=== PATIENT | female | born 1970 | race Caucasian/White ===

== ENCOUNTER 2017-10-05 09:14 | Observation (INO) | payer OTHER ==
[~2017-10-05] VITALS: Ht 170.2 cm; Wt 82.7 kg
[2017-10-05 08:00] VITALS: BP 116/80
[2017-10-05 09:26] LABS: BASOPHILS # (AUTO) 0.21 x10^3/uL (0-0.1); BASOPHILS % (AUTO) 3 % (0-1); EOSINOPHILS # (AUTO) 0.16 x10^3/uL (0-0.4); EOSINOPHILS % (AUTO) 2 % (1-7); LYMPHOCYTES % (AUTO) 33 % (22-44); MD NO; MEAN CORPUSCULAR HGB CONC 33.3 g/dL (32.4-35.8); MEAN CORPUSCULAR VOLUME 93.1 fL (80-100); MEAN PLATELET VOLUME 7.6 fL (7.4-10.4); MONOCYTES # (AUTO) 0.82 x10^3/uL (0.2-0.8); MONOCYTES % (AUTO) 13 % (2-9); NEUTROPHILS % (AUTO) 49 % (42-75); PLATELET COUNT 340 x10^3/uL (130-400); RED BLOOD COUNT 4.41 x10^6/uL (3.82-5.3); RED CELL DISTRIBUTION WIDTH 13.5 % (9.6-15.2)
[2017-10-05] MEDS ORDERED: SODIUM CHLORIDE FLUSH 10ML SYR IVF ONE (09:30)
[2017-10-05 09:36] LABS: INTERNATIONAL NORMALIZED RATIO 0.96 (0.93-1.1)
[2017-10-05 09:42] LABS: TROPONIN I < 0.015 ng/mL (0.000-0.045)
[2017-10-05] MEDS ORDERED: ALPR0.25 PO (10:25)
[2017-10-05] MEDS ORDERED: FLUO10CA7 PO (10:25)
[2017-10-05] MEDS ORDERED: [UNRECOGNIZED DRUG - OTHER] (10:25)
[2017-10-05] MEDS ORDERED: LOVASTATIN PO (10:27)
[2017-10-05] MEDS ORDERED: SYNTHROID PO (10:27)
[2017-10-05] MEDS ORDERED: SODIUM CHLORIDE FLUSH 10ML SYR IVF PRN (11:30)
[2017-10-05] MEDS ORDERED: NICOTINE 14MG/24 HR PATCH.TD24 TD SCH (12:30)
[2017-10-05] MEDS ORDERED: ONDANSETRON ODT 4 MG PO PRN (12:30)
[2017-10-05] MEDS ORDERED: GADOBUTROL 15 MMOL/15 ML PFS ONE (12:54)
[2017-10-05 13:59] LABS: CHOL/HDL RATIO 2.3; LDL/HDL RATIO 1.2 (0.5-3.0)
[2017-10-05 14:05] VITALS: BP 128/64
[2017-10-05 19:36] LABS: TROPONIN I < 0.015 ng/mL (0.000-0.045)
[2017-10-05 20:01] VITALS: BP 118/75
[2017-10-05 20:22] LABS: MICROSCOPIC NOT IND
[2017-10-05 20:26] LABS: CULTURE INDICATED? NO
[2017-10-05] MEDS: AMOXICILLIN/CLAV 875-125MG TABLET PO SCH (20:55)
[2017-10-06 02:02] VITALS: BP 111/75
[2017-10-06] MEDS ORDERED: LEVOTHYROXINE 50 MCG TABLET PO SCH (06:00)
[2017-10-06] MEDS ORDERED: ASPIRIN 325 MG TABLET PO SCH (06:00)
[2017-10-06 07:15] VITALS: BP 101/56
[2017-10-06] MEDS ORDERED: LOVASTATIN 20 MG TABLET PO SCH (09:00)
[2017-10-06] MEDS ORDERED: FLUOXETINE 10 MG CAP PO SCH (09:00)
[2017-10-06] MEDS: AMOXICILLIN/CLAV 875-125MG TABLET PO SCH (09:00)
[2017-10-06] MEDS ORDERED: ASPI-515 PO (10:00)
[2017-10-06] MEDS ORDERED: AMOX1TAB12 PO (10:04)
== END 2017-10-06 11:44 | disposition home or self-care (01) ==
LOC: ED 10:21 → EDIP 10:22 → INTOOBSV 10:22 → ED 10:36 → 4WST 11:08
PROVIDERS: ADMIT Hospitalist; ATTEND Hospitalist
DX: R53.1 Weakness (principal); G45.9 Transient cerebral ischemic attack, unspecified; J32.0 Chronic maxillary sinusitis; E78.00 Pure hypercholesterolemia, unspecified; E78.5 Hyperlipidemia, unspecified; F10.21 Alcohol dependence, in remission; F17.210 Nicotine dependence, cigarettes, uncomplicated; F41.9 Anxiety disorder, unspecified
CPT/HCPCS: 36415; 70450; 70496; 70498; 70553; 71045; 80061; 81003; 83735; 84100; 84484; 85025; 85610; 85730; 93005; 99285; A9585; G0378

== ENCOUNTER → 2017-12-18 | Outpatient (CLI) | payer OTHER ==
[~2017-12-18] MED LIST: ALPR0.25 PO; AMOX1TAB12 PO; ASPI-515 PO; FLUO10CA7 PO; LIDOCAINE-MPF 2%, 2ML ONE; LOVASTATIN PO; OMNIPAQUE 300 MG/ML, 10ML VIAL ONE; ROPivacaine/PF 0.2%, 10 ML ONE; SYNTHROID PO; TRIAMCINOLONE ACETONIDE 40 MG/ML, 1ML ONE; [UNRECOGNIZED DRUG - OTHER]
== END | disposition home or self-care (01) ==
LOC: RAD 14:44
PROVIDERS: ATTEND Orthopaedic Surgery Foot and Ankle Surgery
DX: M20.41 Other hammer toe(s) (acquired), right foot (principal)
CPT/HCPCS: 20605; 77002; J2795; J3301; J3490; Q9967

== ENCOUNTER → 2018-07-09 | Outpatient (CLI) | payer OTHER ==
[~2018-07-09] MED LIST changes: -LIDOCAINE-MPF 2%, 2ML ONE; -OMNIPAQUE 300 MG/ML, 10ML VIAL ONE; -ROPivacaine/PF 0.2%, 10 ML ONE; -TRIAMCINOLONE ACETONIDE 40 MG/ML, 1ML ONE
== END | disposition home or self-care (01) ==
LOC: CFH 10:24
PROVIDERS: ATTEND Obstetrics & Gynecology
DX: Z12.31 Encounter for screening mammogram for malignant neoplasm of breast (principal); F17.200 Nicotine dependence, unspecified, uncomplicated
CPT/HCPCS: 77063; 77067